=== PATIENT | male | born 1945 | race African-American/Black ===

== ENCOUNTER 2017-07-08 16:17 | Emergency (ER) | payer OTHER ==
[~2017-07-08] VITALS: Ht 177.8 cm; Wt 89.1 kg
[2017-07-08 17:04] LABS: HEMATOCRIT 36.8 % (38.0-50.0); MCHC 35.6 G/DL (30.0-36.0); MCV 87.2 FL (86-99); MEAN PLAT.VOLUME 8.9 uM^3 (9.0-12.4); PLATELET COUNT 330 K/uL (156-360); RBC DIS.WIDTH-CV 13.1 % (11.8-14.6); RBC DIS.WIDTH-SD 41.3 % (39-53); RED BLOOD COUNT 4.22 M/uL (4.00-5.50); WHITE BLOOD COUNT 16.4 K/uL (4.1-10.2)
[2017-07-08 17:18] LABS: CHLORIDE 103 mEq/L (99-109); POTASSIUM 3.2 mEq/L (3.7-5.4); SODIUM 138 mEq/L (136-147)
[2017-07-08 17:19] LABS: GLUCOSE 148 mg/dL (70-99)
[2017-07-08 17:21] LABS: ANION GAP 14 MEQ/L (2-14)
[2017-07-08 17:24] LABS: UREA NITROGEN (BUN) 16 mg/dL (9-23)
[2017-07-08 17:26] LABS: GFR ESTIMATE (CALCULATED) 40 mL/min/
[2017-07-08 17:30] LABS: TROP-I INTERPRETATION NEGATIVE; TROPONIN-I < 0.01 ng/mL (0.0-0.30)
[2017-07-08 20:49] VITALS: BP 159/85
== END 2017-07-08 21:18 | disposition short-term general hospital (02) ==
LOC: EME 16:17
PROVIDERS: Emergency Medicine
DX: R55 Syncope and collapse (principal); I63.8 Other cerebral infarction; S00.31XA Abrasion of nose, initial encounter; W19.XXXA Unspecified fall, initial encounter; Y92.149 Unspecified place in prison as the place of occurrence of the external cause; Y93.B2 Activity, push-ups, pull-ups, sit-ups; I10 Essential (primary) hypertension; E78.5 Hyperlipidemia, unspecified
CPT/HCPCS: 70450; 80048; 84484; 85027; 93005; 99281; 99285; J7030